=== PATIENT | male | born 1985 | race Caucasian/White ===

== ENCOUNTER 2019-04-02 03:08 | Emergency (ER) | payer SELFPAY ==
[~2019-04-02] VITALS: Ht 188 cm; Wt 90.9 kg
[2019-04-02] MEDS ORDERED: ARIP5TAB8 PO (03:21)
[2019-04-02 04:02] LABS: BASOPHILS % (AUTO) 0.5 % (0.0-2.0); EOSINOPHILS % (AUTO) 2.1 % (1.0-6.0); HEMATOCRIT 40.6 % (41-53); HEMOGLOBIN 12.8 g/dL (13.5-17.5); LYMPHOCYTES # (AUTO) 1.9 K/uL (1.0-4.8); LYMPHOCYTES % (AUTO) 27.8 % (22.0-44.0); MEAN CORPUSCULAR HEMOGLOBIN 25.9 pg (26.0-34.0); MEAN CORPUSCULAR HGB CONC 31.6 G/dL (31.0-37.0); MEAN CORPUSCULAR VOLUME 82 fL (80-100); MONOCYTES # (AUTO) 0.7 K/uL (0.1-1.0); MONOCYTES % (AUTO) 10.2 % (2.0-9.0); NEUTROPHILS % (AUTO) 59.4 % (40.0-70.0); PLATELET COUNT (AUTO) 216 K/uL (150-450); RED BLOOD CELL COUNT(AUTO) 4.95 MIL/uL (4.50-5.90); RED CELL DISTRIBUTION WIDTH 14.4 % (11.5-14.5)
[2019-04-02 04:13] LABS: ANION GAP 5 mmol/L (8-16); CALCIUM, TOTAL 8.8 mg/dL (8.8-10.5); CARBON DIOXIDE 30 mmol/L (22-29); CHLORIDE 107 mmol/L (98-107); CREATININE 1.09 mg/dL (0.60-1.30); GLOMERULAR FILTR. RATE CALC > 60 mL/min (>60); GLUCOSE,RANDOM 82 mg/dL (70-110); POTASSIUM 3.9 mmol/L (3.5-5.1); SODIUM SERUM 142 mmol/L (136-145); UREA NITROGEN, BLOOD 13 mg/dL (7-18)
[2019-04-02 04:19] LABS: ALANINE AMINOTRANSFERASE 39 U/L (12-78); ALBUMIN 3.2 g/dL (3.4-5.0); ALKALINE PHOSPHATASE 78 U/L (46-116); ASPARTATE AMINOTRANSFERASE 20 U/L (15-37); BILIRUBIN,TOTAL 0.3 mg/dL (0.1-1.0); TOTAL PROTEIN, SERUM 6.2 g/dL (6.4-8.2)
[2019-04-02 04:37] LABS: AMPHET/METH SCREEN,URINE POSITIVE (NEGATIVE); BARBITURATE SCREEN, URINE NEGATIVE (NEGATIVE); BENZODIAZEPINES SCREEN,URINE NEGATIVE (NEGATIVE); CANNABINOID SCREEN,URINE NEGATIVE (NEGATIVE); COCAINE SCREEN,URINE NEGATIVE (NEGATIVE); METHADONE SCREEN, URINE NEGATIVE (NEGATIVE); OPIATE SCREEN,URINE NEGATIVE (NEGATIVE)
[2019-04-02 04:38] LABS: PHENCYCLIDINE SCREEN,URINE NEGATIVE (NEGATIVE)
[2019-04-02] MEDS ORDERED: HALOPERIDOL 5 MG TABLET PO ONE (05:30)
[2019-04-02 10:20] VITALS: BP 112/54
== END 2019-04-02 10:24 | disposition home or self-care (01) ==
LOC: EMS 03:08
DX: R44.0 Auditory hallucinations (principal); F15.10 Other stimulant abuse, uncomplicated; F20.9 Schizophrenia, unspecified; Z59.0 Homelessness
CPT/HCPCS: 36415; 80053; 80307; 85025; 99284; G0480

== ENCOUNTER 2022-02-20 08:26 | Inpatient (IN) | payer MEDICAID ==
[~2022-02-20] VITALS: Ht 188 cm; Wt 93.9 kg
[~2022-02-20 08:26] MED LIST: ARIP5TAB37 PO
[2022-02-20] MEDS ORDERED: ZOLPIDEM TARTRATE 10 MG TABLET PO PRN (17:00)
[2022-02-20 17:40] VITALS: BP 123/78
[2022-02-21 03:57] VITALS: BP 120/66
[2022-02-21 07:25] LABS: BASOPHILS % (AUTO) 0.6 % (0.0-2.0); LYMPHOCYTES # (AUTO) 1.8 K/uL (1.0-4.8); LYMPHOCYTES % (AUTO) 31.4 % (22.0-44.0); MEAN CORPUSCULAR VOLUME 78 fL (80-100); MONOCYTES # (AUTO) 0.6 K/uL (0.1-1.0); NEUTROPHILS # (AUTO) 3.2 K/uL (1.8-7.7)
[2022-02-21 07:28] LABS: EOSINOPHILS % (AUTO) 2.9 % (1.0-6.0); HEMATOCRIT 46.4 % (41-53); HEMOGLOBIN 15.6 g/dL (13.5-17.5); MEAN CORPUSCULAR HGB CONC 33.5 G/dL (31.0-37.0); NEUTROPHILS % (AUTO) 55.1 % (40.0-70.0); PLATELET COUNT (AUTO) 290 K/uL (150-450); RED BLOOD CELL COUNT(AUTO) 5.99 MIL/uL (4.50-5.90); RED CELL DISTRIBUTION WIDTH 14.5 % (11.5-14.5)
[2022-02-21 07:51] LABS: ALANINE AMINOTRANSFERASE 53 U/L (12-78); ALBUMIN 3.5 g/dL (3.4-5.0); ALKALINE PHOSPHATASE 76 U/L (46-116); ANION GAP 4 mmol/L (8-16); ASPARTATE AMINOTRANSFERASE 25 U/L (15-37); BILIRUBIN,TOTAL 0.3 mg/dL (0.1-1.0); CALCIUM, TOTAL 9.1 mg/dL (8.8-10.5); CARBON DIOXIDE 30 mmol/L (22-29); CHLORIDE 103 mmol/L (98-107); CHOL/HDL RATIO 3.3 (4.2-7.3); CHOLESTEROL 142 mg/dL (131-200); CREATININE 1.08 mg/dL (0.60-1.30); FREE T4 (FREE THYROXINE) 1.24 ng/dL (0.76-1.46); GLOMERULAR FILTR. RATE CALC > 60 mL/min (>60); GLUCOSE,RANDOM 97 mg/dL (70-110); HDL CHOLESTEROL 43 mg/dL (40-60); LDL CHOL (CALC.) 84 mg/dL (0-130); POTASSIUM 4.6 mmol/L (3.5-5.1); SODIUM SERUM 137 mmol/L (136-145); THYROID STIMULATING HORMONE 0.69 uIU/mL (0.36-3.74); TOTAL PROTEIN, SERUM 7.4 g/dL (6.4-8.2); TRIGLYCERIDES 73 mg/dL (15-150); UREA NITROGEN, BLOOD 29 mg/dL (7-18)
[2022-02-21 07:57] LABS: HEMOGLOBIN A1C 5.4 % (3.8-5.6)
[2022-02-21 08:33] VITALS: BP 115/72
[2022-02-21 16:08] VITALS: BP 131/85
[2022-02-21] MEDS ORDERED: OMEPRAZOLE 20 MG CAPSULE PO PRN (19:30)
[2022-02-21] MEDS ORDERED: ONDANSETRON HCL 4 MG TABLET PO PRN (19:30)
[2022-02-21] MEDS ORDERED: ACETAMINOPHEN 325 MG TABLET PO PRN (19:30)
[2022-02-21] MEDS ORDERED: MAG HYDROX/AL HYDROX/SIMETH ES 30 ML SUSPENSION UDCUP PO PRN (19:30)
[2022-02-21] MEDS ORDERED: BACITRACIN 28 GM OINTMENT TP PRN (19:30)
[2022-02-21] MEDS ORDERED: DOCUSATE SODIUM 100 MG CAPSULE PO PRN (19:30)
[2022-02-21] MEDS ORDERED: ALBUTEROL SULFATE HFA 90 MCG/PUFF 8 GM INHALER IH PRN (19:30)
[2022-02-21] MEDS ORDERED: PETROLATUM,WHITE 28 GM JELLY TP PRN (19:30)
[2022-02-21] MEDS ORDERED: MAGNESIUM HYDROXIDE SUSPENSION 30 ML UDCUP PO PRN (19:30)
[2022-02-21] MEDS ORDERED: IBUPROFEN 600 MG TABLET PO PRN (19:30)
[2022-02-21] MEDS ORDERED: LOPERAMIDE HCL 2 MG CAPSULE PO PRN (19:30)
[2022-02-21] MEDS ORDERED: BENZOCAINE/MENTHOL LOZENGE PO PRN (19:30)
[2022-02-21] MEDS ORDERED: CloNIDine HCL 0.1 MG TABLET PO PRN (19:30)
[2022-02-22 04:10] VITALS: BP 111/77
[2022-02-22] MEDS: HALOPERIDOL 5 MG TABLET PO PRN (08:17)
[2022-02-22] MEDS: SERTRALINE HCL 50 MG TABLET PO SCH (08:17)
[2022-02-22] MEDS: ARIPiprazole 15 MG TABLET PO SCH (08:17)
[2022-02-22] MEDS: LORazepam 2 MG TABLET PO PRN (08:17)
[2022-02-22 08:24] VITALS: BP 101/60
[2022-02-22 16:12] VITALS: BP 134/62
[2022-02-23 04:25] VITALS: BP 109/72
[2022-02-23 08:14] VITALS: BP 102/58
[2022-02-23] MEDS: HALOPERIDOL 5 MG TABLET PO PRN (08:31)
[2022-02-23] MEDS: ARIPiprazole 15 MG TABLET PO SCH (08:31)
[2022-02-23] MEDS: LORazepam 2 MG TABLET PO PRN (08:31)
[2022-02-23] MEDS: SERTRALINE HCL 50 MG TABLET PO SCH (08:31)
[2022-02-23 16:10] VITALS: BP 107/62
[2022-02-24 04:55] VITALS: BP 111/67
[2022-02-24] MEDS: ARIPiprazole 15 MG TABLET PO SCH (08:07)
[2022-02-24] MEDS: SERTRALINE HCL 50 MG TABLET PO SCH (08:07)
[2022-02-24 08:14] VITALS: BP 108/62
[2022-02-24 16:11] VITALS: BP 110/64
[2022-02-24] MEDS: LORazepam 2 MG TABLET PO PRN (16:38)
[2022-02-25 04:04] VITALS: BP 114/69
[2022-02-25] MEDS: ARIPiprazole 15 MG TABLET PO SCH (08:16)
[2022-02-25] MEDS: SERTRALINE HCL 50 MG TABLET PO SCH (08:16)
[2022-02-25 08:22] VITALS: BP 111/60
[2022-02-25 16:03] VITALS: BP 100/64
[2022-02-26 05:41] VITALS: BP 102/62
[2022-02-26 08:10] VITALS: BP 104/64
[2022-02-26] MEDS: SERTRALINE HCL 50 MG TABLET PO SCH (08:32)
[2022-02-26] MEDS: ARIPiprazole 15 MG TABLET PO SCH (08:32)
[2022-02-26] MEDS: LORazepam 2 MG TABLET PO PRN (11:19)
[2022-02-26 16:10] VITALS: BP 103/68
[2022-02-27 05:02] VITALS: BP 112/77
[2022-02-27] MEDS: LORazepam 2 MG TABLET PO PRN (08:13)
[2022-02-27] MEDS: SERTRALINE HCL 50 MG TABLET PO SCH (08:13)
[2022-02-27] MEDS: ARIPiprazole 15 MG TABLET PO SCH (08:13)
[2022-02-27 08:15] VITALS: BP 104/57
[2022-02-27 16:14] VITALS: BP 108/66
[2022-02-28 04:56] VITALS: BP 98/61
[2022-02-28] MEDS: SERTRALINE HCL 50 MG TABLET PO SCH (08:27)
[2022-02-28] MEDS: LORazepam 2 MG TABLET PO PRN ×2 (08:27→16:26)
[2022-02-28] MEDS: ARIPiprazole 15 MG TABLET PO SCH (08:27)
[2022-02-28 16:20] VITALS: BP 115/77
[2022-03-01 04:52] VITALS: BP 94/59
[2022-03-01 08:27] VITALS: BP 100/68
[2022-03-01] MEDS: ARIPiprazole 15 MG TABLET PO SCH (09:02)
[2022-03-01] MEDS: SERTRALINE HCL 50 MG TABLET PO SCH (09:02)
[2022-03-01 16:05] VITALS: BP 115/69
[2022-03-02 04:03] VITALS: BP 94/58
[2022-03-02 08:05] VITALS: BP 106/67
[2022-03-02] MEDS: ARIPiprazole 15 MG TABLET PO SCH (08:24)
[2022-03-02] MEDS: SERTRALINE HCL 50 MG TABLET PO SCH (08:24)
[2022-03-02] MEDS: LORazepam 2 MG TABLET PO PRN (08:43)
[2022-03-02 16:11] VITALS: BP 106/67
[2022-03-03 04:26] VITALS: BP 102/62
[2022-03-03] MEDS: ARIPiprazole 15 MG TABLET PO SCH (08:15)
[2022-03-03] MEDS: SERTRALINE HCL 50 MG TABLET PO SCH (08:15)
[2022-03-03 08:23] VITALS: BP 107/61
[2022-03-03] MEDS ORDERED: SERT-158 PO (09:23)
[2022-03-03] MEDS ORDERED: ARIP15TA27 PO (09:23)
== END 2022-03-03 13:42 | disposition home or self-care (01) | DRG 753 ==
LOC: B3A 13:32
PROVIDERS: ADMIT Psychiatry & Neurology Psychiatry; ATTEND Psychiatry & Neurology Psychiatry
DX: F31.9 Bipolar disorder, unspecified (principal); F22 Delusional disorders; R45.851 Suicidal ideations; F41.9 Anxiety disorder, unspecified; G47.00 Insomnia, unspecified; K59.00 Constipation, unspecified; Y90.9 Presence of alcohol in blood, level not specified; F19.10 Other psychoactive substance abuse, uncomplicated; F10.10 Alcohol abuse, uncomplicated; F12.10 Cannabis abuse, uncomplicated; Z20.822 Contact with and (suspected) exposure to COVID-19; Z59.00 Homelessness unspecified; Z71.41 Alcohol abuse counseling and surveillance of alcoholic; Z91.14 Patient's other noncompliance with medication regimen
CPT/HCPCS: 80053; 80061; 83036; 84439; 84443; 85025